=== PATIENT | female | born 1975 | race Caucasian/White ===

== ENCOUNTER 2016-09-29 14:58 | Emergency (ER) | payer OTHER ==
--- NOTE | 2016-09-29 16:59 | RADIOLOGY REPORT ---
AP and lateral soft tissue neck radiograph HISTORY: Difficulty breathing COMPARISON: None FINDINGS: Epiglottis is normal in size. There is no narrowing of the subglottic airway on AP view. There is a r ounded radiopaque density projecting over the upper trachea on lateral view, not appreciated on AP vi ew. This is favored external to patient.. Vertebral body height and alignment are preserved. Preverte bral soft tissues are nondisplaced. IMPRESSION: Rounded radiopaque density projecting over the upper trachea on lateral view, not appreciated on AP v iew. This is favored external to patient. Otherwise unremarkable soft tissue neck radiographs. Final Electronic Signature: This report was electronically signed by Reginald Wyatt MD on 09/29/2016 4:57 PM. nasir /
--- NOTE | 2016-09-29 17:43 | ER NURSING DOCUMENTATION ---
Nurse's Notes [facility] Name:Hanna Shin Age:41 yrs Sex:Female :1975 Arrival Date:09/29/2016 Time:14:58 BedD-1 Private MD: Diagnosis:Laryngitis, w/o Obstruction Presentation: 09/29 15:08 Acuity: STEF 3 st 15:10 Presenting complaint: Patient states: pt has had a sore throat for a few days with a st cough and loosing her voice. Transition of care: Home. 15:10 Method Of Arrival: Private Vehicle st Triage Assessment: 15:11 General: Appears uncomfortable, Behavior is cooperative. Pain: Complains of pain in st throat. Cardiovascular: No deficits noted. Respiratory: Airway is patent voice horse. Respiratory effort is even, unlabored, Respiratory pattern is regular, symmetrical, Breath sounds are clear bilaterally. Reports cough that is productive, clear sputum Onset: The symptoms/episode began/occurred few days. GI: No deficits noted. 15:12 Respiratory: Reports shortness of breath feeling like she can't get a deep breath. the st patient has mild shortness of breath. Historical: - Allergies: No known drug Allergies; - Home Meds: 1. Xanax Oral 2. Hydroxyzine Oral - PSHx: HYSTERECTOMY; - Tetanus: < 10 years. - Ebola Screening: : Patient denies exposure to infectious person. Patient denies travel to an Ebola-affected area in the 21 days before illness onset. . - Immunization history: Pneumococcal vaccine status is unknown. - Social history: Smoking status: Patient states was never smoker of tobacco. Patient/guardian denies using alcohol, marijuana. Screenin:13 Infectious Disease Risk None. Abuse screen: Denies threats or abuse. Denies injuries st from another. pt feels safe at home. Nutritional screening: No deficits noted. Vital Signs: 15:04 BP 120 / 67 LA Sitting (auto/reg); Pulse 87 RA; Resp 16 S; Temp 99.1(O); Pulse Ox 96% em3 on R/A; Weight 76.2 kg (R); Height 5 ft. 4 in. (162.56 cm) (R); Pain 0/10; 17:37 BP 102 / 65; Pulse 72; Resp 16; Pulse Ox 95% ; em3 15:04 Body Mass Index 28.84 (76.20 kg, 162.56 cm) em3 ED Course: 15:00 Patient arrived in ED. arc 15:05 Valuables Remains with patient Patient has correct armband on for positive em3 identification. Bed in low position. Call light in reach. Side rails up X 1. 15:08 Angeles Godoy RN is Primary Nurse. st 15:[address] 15:23 Basilio Williamson MD is Attending Physician. tl1 16:22 Patient moved to radiology. hz 16:35 Patient moved back from radiology. hz Administered Medications: No medications were administered Outcome: 17:27 Discharge ordered by . tl1 17:41 Discharged to home ambulatory. st 17:41 Condition: stable 17:41 Discharge instructions given to patient, Instructed on discharge instructions, follow up and referral plans. medication usage. 17:[address] ED[address] 0716 12:57 Discharge F/U Call: Spoke with: patient. Have you filled your prescriptions? yes. Did lc your discharge instructions answer all of your questions? yes Have you made a f/u appointment? Overall Care on a scale of 1-10 with 10 being the best care, you rate our care as: Other comments: FEELING BETTER Signatures: Angeles Godoy RN RN st Coleman, Linda, RN RN lc Meiklejohn, Eric 3 Basilio Williamson MD MD tl1 Linda Medina, Kelsey Hawkins
--- NOTE | 2016-10-01 17:42 | ER PHYSICIAN DOCUMENTATION ---
Physician Documentation [facility] Name:Hanna Shin Age:41 yrs Sex:Female :1975 Arrival Date:09/29/2016 Time:14:58 BedD-1 Private MD: Basilio Richmond Disposition: 09/29/16 17:27 Discharged to Home/Self Care. Impression: Laryngitis, w/o Obstruction. - Condition is Good. - Discharge Instructions: Disease, Laryngeal - LARYNGITIS. - Prescriptions for [place] 5- 325 mg Oral Tablet - take 1 tablet by ORAL route every 6 hours As needed; 6 tablet. Zofran 4 mg Oral - take 1-2 tablet by ORAL route every 4-6 hours As needed; 6 tablet. - Medical Reconciliation form form. - Follow up: Private Physician; When: 4- 6 days; Reason: Recheck today's complaints. - Problem is new. - Symptoms have improved. HPI: 09/29 15:00 This 41 yrs old Female presents to ER via Private Vehicle with complaints of tl1 Breathing Difficulty. 15:00 For the last 2 days she has had a sore throat with progressive hoarseness and loss of tl1 her voice. Slight rhinorrhea. Intemittent [employer] cough. Mild pain with swallowing, but no dysphagia. No f/c/s. [place] She has a sense of some tightness in her throat, but not really any air hunger.. Historical: - Allergies: No known drug Allergies; - Home Meds: 1. Xanax Oral 2. Hydroxyzine Oral - PSHx: HYSTERECTOMY; - Tetanus: < 10 years. - Ebola Screening: : Patient denies exposure to infectious person. Patient denies travel to an Ebola-affected area in the 21 days before illness onset. . - Immunization history: Pneumococcal vaccine status is unknown. - Social history: Smoking status: Patient states was never smoker of tobacco. Patient/guardian denies using alcohol, marijuana. ROS: 15:00 ENT: Positive for hoarseness, sore throat, Negative for ear pain, nasal discharge, tl1 difficulty swallowing, difficulty handling secretions. 15:00 ENT: Negative for stridor. 15:00 Respiratory: Positive for 15:00 Respiratory: Negative for dyspnea on exertion, hemoptysis, pleurisy, shortness of breath, sputum production, wheezing. 15:00 All other systems are negative. Exam: 15:00 Constitutional: The patient appears in no acute distress, alert, awake, comfortable, tl1 non-diaphoretic, non-toxic, well developed, well hydrated, well groomed, well nourished. 15:00 Head/face: Exam is negative for acute changes. 15:00 ENT: Mouth: is normal, Oral mucosa: pink and intact, moist, Posterior pharynx: no acute changes, Airway: normal, no evidence of obstruction, Tonsils: are normal in appearance, Uvula: normal, midline, swelling, is not appreciated, erythema, is not appreciated, exudate, is not appreciated, Voice: is hoarse. 15:00 Neck: ROM/movement: is normal, is supple, Meningeal signs: are not present, Lymph nodes: no appreciated lymphadenopathy. 15:00 Cardiovascular: Rate: normal, Rhythm: regular, Heart sounds: normal. 15:00 Respiratory: the patient does not display signs of respiratory distress, Respirations: normal, Breath sounds: are normal, clear throughout, no decreased breath sounds, no rales, rhonchi, no stridor, no wheezing. 15:00 Neuro: Exam negative for acute changes. Vital Signs: 15:04 BP 120 / 67 LA Sitting (auto/reg); Pulse 87 RA; Resp 16 S; Temp 99.1(O); Pulse Ox 96% em3 on R/A; Weight 76.2 kg (R); Height 5 ft. 4 in. (162.56 cm) (R); Pain 0/10; 17:37 BP 102 / 65; Pulse 72; Resp 16; Pulse Ox 95% ; em3 15:04 Body Mass Index 28.84 (76.20 kg, 162.56 cm) em3 MDM: 15:24 Patient medically screened. tl1 16:30 Differential diagnosis: Laryngitis, epiglottitis, bacterial tracheitis. Antibiotic tl1 administration: Not indicated. Data reviewed: vital signs, nurses notes, lab test result(s), RST NEG. Data reviewed: radiologic studies, plain films, and as a result, I will discharge patient. Data interpreted: phototypesetting equipment monitor: Pulse oximetry: on room air is 95 %. Counseling: I had a detailed discussion with the patient and/or guardian regarding: the historical points, exam findings, and any diagnostic results supporting the discharge/admit diagnosis, lab results, radiology results, the need for outpatient follow up, to return to the emergency department if symptoms worsen or persist or if there are any questions or concerns that arise at home. Special discussion: THIS seems like viral laryngitis. We talked about bacterial tracheitis and epiglottitis as very unlikely. Also discussed possible use of steroids, but there is no compelling reason that she needs her voice back and it may not be worth the risk.. 09/29 15:21 Order name: RAPID STREP SCRN CUL IF NEG; Complete Time: 05:40 EDMS 10/01 05:39 Interpretation: Normal: RAPID STREP SCRN CUL IF NEG NEGATIVE. tl1 09/30 06:17 Order name: THROAT FOR BETA STREP EDWY 09/29 17:00 Order name: XRAY EXAM,NECK SOFT [id number]; Complete Time: 05:40 EDMS 10/01 05:40 Interpretation: Normal. tl1 Dispensed Medications: No medications were administered Signatures: Angeles Godoy, RN Basilio Meredith MD MD tl1
== END 2016-09-29 17:43 | disposition home or self-care (01) ==
LOC: ER 14:58
DX: J04.0 Acute laryngitis (principal); Z79.899 Other long term (current) drug therapy
CPT/HCPCS: 70360; 86403; 87081; 99283